=== PATIENT | male | born 1990 | race Caucasian/White ===

== ENCOUNTER 2022-10-17 01:28 | Emergency (ER) | payer OTHER ==
[~2022-10-17] VITALS: Ht 185.4 cm; Wt 105.8 kg
[2022-10-17] MEDS ORDERED: diphenhydrAMINE 50MG/ML VIAL IV ONE (01:50)
[2022-10-17] MEDS ORDERED: FAMOTIDINE 20MG/2ML VIAL IVP ONE (01:50)
[2022-10-17] MEDS ORDERED: methylPREDNISolone 125MG 2ML VIAL IV ONE (01:50)
[2022-10-17] MEDS ORDERED: PRED20TA PO (03:38)
[2022-10-17 04:30] VITALS: BP 109/59
== END 2022-10-17 04:30 | disposition home or self-care (01) ==
LOC: M ED 01:28
DX: T78.40XA Allergy, unspecified, initial encounter (principal)
CPT/HCPCS: 96374; 96375; 99284; J1200; J2930

== ENCOUNTER 2022-12-08 20:26 | Inpatient (IN) | payer MEDICAID, OTHER ==
[~2022-12-08] VITALS: Ht 185.4 cm; Wt 100.0 kg
[~2022-12-08 20:26] MED LIST: PRED20TA PO
[2022-12-08 21:08] LABS: HEMATOCRIT 52.2 % (42.0-52.0); HEMOGLOBIN 18.3 g/dl (13.5-17.5); MEAN CORPUSCULAR HEMOGLOBIN 30.6 pg (27.0-33.0); MEAN CORPUSCULAR HGB CONC 35.1 g/dl (32.0-36.5); MEAN CORPUSCULAR VOLUME 87.3 fl (80.0-96.0); PLATELET COUNT, AUTOMATED 292 10^3/uL (150-450); RED BLOOD COUNT 5.98 10^6/uL (4.30-6.10); WHITE BLOOD COUNT 6.8 10^3/uL (4.0-10.0)
[2022-12-08 21:40] LABS: ACETAMINOPHEN LEVEL < 2.0 UG/ML (10.0-20.0); ALBUMIN 4.5 G/DL (3.2-5.2); ALKALINE PHOSPHATASE 94 U/L (46-116); ALT/SGPT 58 U/L (7.0-40); AST/SGOT 20 U/L (<34); BILIRUBIN,DIRECT 0.2 MG/DL (<0.4); BILIRUBIN,TOTAL 0.4 MG/DL (0.3-1.2); BLOOD UREA NITROGEN 9 MG/DL (9-23); CALCIUM LEVEL 9.2 MG/DL (8.5-10.1); CARBON DIOXIDE LEVEL 23 MMOL/L (20-31); CHLORIDE LEVEL 110 MMOL/L (98-107); CREATININE FOR GFR 1.13 MG/DL (0.70-1.30); GLOMERULAR FILTRATION RATE > 60.0 (>60); GLUCOSE, FASTING 104 MG/DL (60-100); POTASSIUM SERUM 4.2 MMOL/L (3.5-5.1); SALICYLATE LEVEL < 3.0 MG/DL (<30); SODIUM LEVEL 144 MMOL/L (136-145)
[2022-12-08 21:53] LABS: ETHYL ALCOHOL (ETHANOL) 0.289 % (0.000-0.010)
[2022-12-08] MEDS ORDERED: HOME MED LIST COMPLETE! XX SCH (23:20)
[2022-12-09 05:14] LABS: AMPHETAMINES LEVEL URINE NEGATIVE (NEGATIVE); BARBITURATES URINE NEGATIVE (NEGATIVE); BENZODIAZEPINES URINE NEGATIVE (NEGATIVE); CANNABINOIDS URINE NEGATIVE (NEGATIVE); COCAINE METABOLITE URINE NEGATIVE (NEGATIVE); METHADONE URINE NEGATIVE (NEGATIVE); OPIATES URINE NEGATIVE (NEGATIVE); PHENCYCLIDINE URINE NEGATIVE (NEGATIVE)
[2022-12-09] MEDS ORDERED: MOM 30ML SUSPENSION UDC PO PRN (12:20)
[2022-12-09] MEDS ORDERED: traZODone 50 MG TAB PO PRN (12:20)
[2022-12-09] MEDS ORDERED: IBUPROFEN 400MG TAB PO PRN (12:20)
[2022-12-09] MEDS ORDERED: LORazepam 2 MG TAB PO PRN (12:20)
[2022-12-09] MEDS ORDERED: MAALOX 30 ML SUSP *UDC PO PRN (12:20)
[2022-12-09] MEDS: NICOTINE 21MG/24HR 1 EA TRANSDERMAL TD SCH (13:00)
[2022-12-09] MEDS: MULTIVITAMINS/MINERALS THERAP 1 TAB PO SCH (13:17)
[2022-12-09] MEDS: THIAMINE 100 MG TAB PO SCH ×2 (13:17→21:15)
[2022-12-09 21:55] VITALS: BP 152/90
[2022-12-09 21:56] VITALS: BP 152/90
[2022-12-10 06:41] VITALS: BP 129/83
[2022-12-10 06:43] VITALS: BP 129/83
[2022-12-10] MEDS: NICOTINE 21MG/24HR 1 EA TRANSDERMAL TD SCH (09:00)
[2022-12-10] MEDS ORDERED: FOLIC ACID 1MG TAB PO SCH (09:00)
[2022-12-10] MEDS: THIAMINE 100 MG TAB PO SCH (09:17)
[2022-12-10] MEDS: MULTIVITAMINS/MINERALS THERAP 1 TAB PO SCH (09:17)
== END 2022-12-10 13:23 | disposition home or self-care (01) | DRG 775 ==
LOC: M ED 20:26 → M ED INP 12-09 12:17 → M PSY 12-09 16:04
PROVIDERS: ADMIT Student in an Organized Health Care Education/Training Program; ATTEND Psychiatry & Neurology Psychiatry
DX: F10.94 Alcohol use, unspecified with alcohol-induced mood disorder (principal); R45.851 Suicidal ideations; F10.929 Alcohol use, unspecified with intoxication, unspecified; F43.10 Post-traumatic stress disorder, unspecified; Z91.82 Personal history of military deployment; Z20.822 Contact with and (suspected) exposure to COVID-19

== ENCOUNTER → 2024-05-16 | Outpatient (CLI) | payer MEDICAID | LOC: M OUTALCOH 10:18 | PROVIDERS: ATTEND Psychiatry & Neurology Psychiatry | DX: F10.20 Alcohol dependence, uncomplicated (principal) ==

== ENCOUNTER 2024-06-23 16:00 | Outpatient (RCR) | payer MEDICAID | END 2024-06-25 | LOC: M OUTALCOH 16:00 | PROVIDERS: ATTEND Psychiatry & Neurology Psychiatry | DX: F10.20 Alcohol dependence, uncomplicated (principal) ==

== ENCOUNTER 2024-07-21 16:00 | Outpatient (RCR) | payer MEDICAID | END 2024-07-25 | LOC: M OUTALCOH 16:00 | PROVIDERS: ATTEND Psychiatry & Neurology Psychiatry | DX: F10.20 Alcohol dependence, uncomplicated (principal) ==

== ENCOUNTER 2024-08-12 15:00 | Outpatient (RCR) | payer MEDICAID | END 2024-08-25 | LOC: M OUTALCOH 15:00 | PROVIDERS: ATTEND Psychiatry & Neurology Psychiatry | DX: F10.20 Alcohol dependence, uncomplicated (principal) ==

== ENCOUNTER → 2025-02-10 | Outpatient (CLI) | payer OTHER | LOC: M RAD 07:05 | PROVIDERS: ATTEND Nurse Practitioner Family | DX: R94.5 Abnormal results of liver function studies (principal) ==